=== PATIENT | female | born 1985 | race Caucasian/White ===

== ENCOUNTER 2023-06-12 15:27 | Inpatient (IN) | payer OTHER ==
[~2023-06-12] VITALS: Ht 175.3 cm; Wt 93.4 kg
[2023-06-21] MEDS ORDERED: PRENATAL TABLE1 EAC1 PO (09:27)
[2023-06-21 09:34] LABS: HEMATOCRIT 37.4 % (36.0-45.00); HEMOGLOBIN 12.5 g/dL (12.0-15.00); MEAN CELL VOLUME 89.3 fL (80.00-100.00); MEAN CORPUSCULAR HEMOGLOBIN 29.8 pg (27.00-32.0); MEAN CORPUSCULAR HGB CONC 33.4 g/dl (32.0-36.0); PLATELET COUNT 192 K/uL (150-450); RED BLOOD COUNT 4.19 M/uL (4.00-6.00); RED CELL DISTRIBUTION WIDTH 15.8 % (11.5-14.5)
[2023-06-21 09:45] LABS: INR < 0.93; PARTIAL THROMBOPLASTIN TIME 26.3 SECONDS (22.0-34.0); PROTHROMBIN TIME 9.8 SECONDS (9.0-11.5)
[2023-06-21 11:22] LABS: ALBUMIN 2.7 gm/dL (3.4-5.0); BILIRUBIN TOTAL 0.67 mg/dL (0.3-1.2); CALCIUM 9.1 mg/dL (8.5-10.1); CREATININE SERUM 0.57 mg/dL (0.55-1.02); GFR 120.01; GLOBULINA 3.3 G/DL (2.4-3.5); POTASSIUM 3.89 mEq/L (3.5-5.1)
[2023-06-21 17:46] LABS: ABG PH 7.343 (7.35-7.45); ABG pCO2 38.5 mmHg (35-45)
[2023-06-21 17:47] LABS: ABG PO2 33.9 mmHg (80-100); BASE EXCESS -4.8 mmol/l; BICARBONATE 20.4 mmol/l (23-25); Tco2 21.6 mmol/l; o2 21 %
== END 2023-06-23 14:27 | disposition home or self-care (01) | DRG 807 ==
LOC: LDR 06-21 07:13 → OB/GYN 06-21 16:09 → LDR 07-05 15:27
PROVIDERS: Obstetrics & Gynecology Maternal & Fetal Medicine; ADMIT Obstetrics & Gynecology Gynecology; ATTEND Obstetrics & Gynecology Gynecology
PROC: 10E0XZZ Delivery of Products of Conception, External Approach (ICD-10-PCS; principal; 2023-06-21)
PROC: 0KQM0ZZ Repair Perineum Muscle, Open Approach (ICD-10-PCS; 2023-06-21)
PROC: 0W8NXZZ Division of Female Perineum, External Approach (ICD-10-PCS; 2023-06-21)
PROC: 3E033VJ Introduction of Other Hormone into Peripheral Vein, Percutaneous Approach (ICD-10-PCS; 2023-06-21)
PROC: 4A1HXCZ Monitoring of Products of Conception, Cardiac Rate, External Approach (ICD-10-PCS; 2023-06-21)
DX: O70.1 Second degree perineal laceration during delivery (principal); Z37.0 Single live birth; Z3A.38 38 weeks gestation of pregnancy; Z20.822 Contact with and (suspected) exposure to COVID-19

== ENCOUNTER 2025-07-06 13:08 | Outpatient (CLI) | payer OTHER ==
[~2025-07-06 13:08] MED LIST: PRENATAL TABLE1 EAC1 PO
== END 2025-07-06 13:49 | disposition home or self-care (01) ==
LOC: NST 13:08
PROVIDERS: ATTEND Obstetrics & Gynecology
DX: Z34.83 Encounter for supervision of other normal pregnancy, third trimester (principal)

== ENCOUNTER 2025-08-18 07:42 | Inpatient (IN) | payer OTHER ==
[2025-08-18] VITALS (9 sets, daily range): BP systolic 118–140; BP diastolic 67–75
[~2025-08-18] VITALS: Ht 172.7 cm; Wt 92.5 kg
[2025-08-18] MEDS ORDERED: OXYTOCIN 500 ML IV ONE (09:15)
[2025-08-18 10:19] LABS: BASO % 0.2 % (0.1-1.2); EOS # 0.08 (0.04-0.54); EOS % 0.9 % (0.7-7.0); LYMPH # 1.43 (1.18-3.74); LYMPH % 16.5 % (19.3-53.1); MEAN PLATELET VOLUME 11.90 fl (9.4-12.4); MONO # 0.93 (0.24-0.82); MONO % 10.7 % (4.7-12.5); NEUT # 6.17 (1.56-6.13); NEUT % 71.2 % (34.0-71.1); RED CELL DISTRIBUTION WIDTH 13.7 % (11.6-14.4)
[2025-08-18 10:37] LABS: INR < 0.93
[2025-08-18 11:24] LABS: ALT/SGPT 22.0 U/L (12-78); AST/SGOT 13.0 U/L (15-37); BILIRUBIN TOTAL 0.58 mg/dL (0.3-1.2); BUN CREA RATIO 20.0 (7.0-25.0); CREATININE SERUM 0.41 mg/dL (0.55-1.02); GFR 173.61; GLOBULINA 3.4 G/DL (2.4-3.5); GLUCOSE FASTING 90.0 mg/dL (65-100); OSMOLALITY SERUM 283.0 MOSM/KG (275-295)
[2025-08-18] MEDS ORDERED: LIDOCAINE HCL 1% 10ML VIAL ONE (14:43)
[2025-08-18] MEDS ORDERED: CHLORHEXIDINE GLUCONATE 120 ML BOTTLE TOP ONE (14:43)
[2025-08-18] MEDS ORDERED: ERYTHROMYCIN BASE OPHT 1GM EACH TUBE OP ONE (14:43)
[2025-08-18] MEDS ORDERED: OXYTOCIN 20 UNITS/1000ML RL PIGGYBAG IV ONE ×2 (14:43→16:42)
[2025-08-18] MEDS ORDERED: CHLORHEXIDINE GLUCONATE 120 ML BOTTLE TP SCH (17:30)
[2025-08-18] MEDS ORDERED: OXYTOCIN 1,000 ML IV ONE (17:30)
[2025-08-18] MEDS ORDERED: ACETAMINOPHEN 500 MG GEL..CAP PO SCH (18:00)
[2025-08-19 02:20] VITALS: BP 115/75
[2025-08-19 07:04] LABS: BASO % 0.3 % (0.1-1.2); EOS # 0.10 (0.04-0.54); EOS % 0.8 % (0.7-7.0); LYMPH # 1.54 (1.18-3.74); LYMPH % 13.1 % (19.3-53.1); MEAN PLATELET VOLUME 11.90 fl (9.4-12.4); MONO # 1.36 (0.24-0.82); MONO % 11.5 % (4.7-12.5); NEUT # 8.71 (1.56-6.13); NEUT % 73.8 % (34.0-71.1); RED CELL DISTRIBUTION WIDTH 13.6 % (11.6-14.4)
[2025-08-19] MEDS ORDERED: DOCUSATE SODIUM 100MG CAP PO SCH (09:00)
[2025-08-19] MEDS ORDERED: PNV,CALCIUM 72/IRON/FOLIC ACID 1 TAB TABLET PO SCH (09:00)
[2025-08-19 09:05] VITALS: BP 124/83
[2025-08-19 17:15] VITALS: BP 116/77
[2025-08-20 01:33] VITALS: BP 117/72
[2025-08-20 09:08] VITALS: BP 117/80
== END 2025-08-20 11:48 | disposition home or self-care (01) | DRG 807 ==
LOC: LDR 07:42 → OB/GYN 18:46
PROVIDERS: Obstetrics & Gynecology Gynecology; ADMIT Obstetrics & Gynecology Maternal & Fetal Medicine; ATTEND Obstetrics & Gynecology Maternal & Fetal Medicine
PROC: 10E0XZZ Delivery of Products of Conception, External Approach (ICD-10-PCS; principal; 2025-08-18)
PROC: 0UQMXZZ Repair Vulva, External Approach (ICD-10-PCS; 2025-08-18)
PROC: 0UQG7ZZ Repair Vagina, Via Natural or Artificial Opening (ICD-10-PCS; 2025-08-18)
PROC: 4A1HXCZ Monitoring of Products of Conception, Cardiac Rate, External Approach (ICD-10-PCS; 2025-08-18)
DX: O70.0 First degree perineal laceration during delivery (principal); O69.81X0 Labor and delivery complicated by cord around neck, without compression, not applicable or unspecified; Z37.0 Single live birth; Z3A.38 38 weeks gestation of pregnancy